=== PATIENT | male | born 1970 | race Caucasian/White ===

== ENCOUNTER 2017-06-04 15:10 | Emergency (ER) | payer OTHER ==
[2017-06-04 15:25] VITALS: BP 136/86
[2017-06-04] MEDS ORDERED: Ketorolac 60 MG/2 ML SDV IM ONE (15:35)
[2017-06-04] MEDS ORDERED: Ondansetron 4 MG Tab.DIS PO ONE (15:35)
--- NOTE | 2017-06-04 15:35 | EDM.PDOC ---
ED [facility] GENERAL MEDICAL PROBLEM - General Chief Complaint: Headache Stated Complaint: MIGRAINE Time Seen by Provider: 06/04/17 15:25 Source of Information: Reports: Patient History Limitations: Reports: No Limitations - History of Present Illness INITIAL COMMENTS - FREE TEXT/NARRATIVE: 47-year-old male presents for evaluation and treatment of a migraine headache. Patient reports that he developed a migraine headache yesterday that lasted about a day and a half. He reports that his symptoms resolved. He reports this current migraine started about 2 hours ago. Reports is located on the left side of his head behind his eye and in the left parietal temporal region. He reports that he usually has migraines are on the right side. Other than being on different side this is a pretty typical severe migraine for him. He reports associated symptoms of nausea, photophobia and phonophobia. Denies any fevers, cough or vomiting. Patient reports he gets frequent migraines. He has been on multiple medications and tried different things for his migraines. He has seen neurology in the past. He has also had multiple imaging studies including CT and MRIs done. No etiology for his migraines have been found. He reports that smells seem to be a trigger for him. He states that he has not appreciating anything noxious lately that could've caused this migraine. He is here requesting Toradol. Reports that Toradol treats his migraines very well and he would like some Toradol today. Onset: Today, Sudden Location: Reports: Head (left ) Headache Pain Score (Numeric/FACES): 10 - Related Data Allergies Allergy/AdvReac Type Severity Reaction Status Date / Time No Known Allergies Allergy Verified 06/04/17 15:25 Home Meds: Home Meds . [No Known Home Meds] 06/04/17 [History] Past Medical History Musculoskeletal History: Reports: Osteoarthritis Neurological History: Reports: Headaches, Chronic, Migraines - Past Surgical History Other Musculoskeletal Surgeries/Procedures:: herniated disks lower back Social & Family History - Family History Family Medical History: Noncontributory - Tobacco Use Smoking Status *Q: Never Smoker Years of Tobacco use: 10 Used Tobacco, but Quit: No Second Hand Smoke Exposure: No - Caffeine Use Caffeine Use: Reports: Coffee - Alcohol Use Days Per Week of Alcohol Use: 0 - Recreational Drug Use Recreational Drug Use: No - Living Situation & Occupation Living situation: Reports: , with Spouse Occupation: Employed ED [employer] GENERAL - Review of Systems Review Of Systems: See Below Constitutional: Denies: Fever HEENT: Denies: Ear Pain, Sinus Problem, Throat Pain Respiratory: Denies: Cough GI/Abdominal: Reports: Nausea. Denies: Vomiting Neurological: Reports: Headache (left parietal temporal region) - Physical Exam Exam: See Below Exam Limited By: No Limitations General Appearance: Alert, WD/WN, No Apparent Distress Eye Exam: Bilateral Eye: Normal Inspection, PERRL Ears: Normal External Exam, Normal Canal, Hearing Grossly Normal, Normal TMs Nose: Normal Inspection Throat/Mouth: Normal Inspection, Normal Lips, Normal Voice, No Airway Compromise Head Exam: Atraumatic, Normocephalic Neck: Normal Inspection, Non-Tender, Full Range of Motion Respiratory/Chest: No Respiratory Distress, Lungs Clear, Normal Breath Sounds Cardiovascular: Normal Peripheral Pulses, Regular Rate, Rhythm, No Murmur Neuro Exam (Abbreviated): Alert, Oriented, Normal Cognition Psychiatric: Normal Affect, Normal Mood Skin Exam: Warm, Dry, Normal Color Course - Vital Signs Last Recorded V/S: Last Vital Signs Temp 36.3 C 06/04/17 15:23 Pulse 63 06/04/17 15:23 Resp 18 06/04/17 15:23 BP 136/86 06/04/17 15:23 Pulse Ox 98 06/04/17 15:23 - Orders/Labs/Meds Meds: Medications Discontinued Medications Generic Name Dose Route Start Last Admin Trade Name Alexandru PRN Reason Stop Dose Admin Ketorolac Tromethamine 60 mg 06/04/17 15:35 06/04/17 15:49 Toradol IM 06/04/17 15:36 60 mg ONETIME ONE Administration Ondansetron HCl 4 mg 06/04/17 15:35 06/04/17 15:49 Zofran Odt PO 06/04/17 15:36 4 mg ONETIME ONE Administration - Re-Assessments/Exams Free Text/Narrative Re-Assessment/Exam: 06/04/17 16:12 Patient feels greatly improved at this time. He would like to go home. Migraine is now a /10. We will discharge him home. Discharge instructions as documented. Departure - Departure Time of Disposition: 16:12 Disposition: Home, Self-Care 01 Condition: Good Clinical Impression: Migraine - Discharge Information Instructions: Migraine Headache, [id number] Referrals: Shira Steiner DO [Primary Care Provider] - Forms: ED Department Discharge Additional Instructions: Continue with your current plan of care for migraine and headache relief. Make sure you're drinking plenty of fluids today. Please return to the ER if your symptoms change or worsen.
== END 2017-06-04 16:28 | disposition home or self-care (01) ==
LOC: JD.ED 15:10
DX: G43.909 Migraine, unspecified, not intractable, without status migrainosus (principal)
CPT/HCPCS: 96372; 99284; A9270; J1885; 99282

== ENCOUNTER → 2022-09-16 | Day surgery (SDC) | payer BC, OTHER ==
[~2022-09-16] MED LIST: Albuterol 0.083% 2.5 MG/3 ML Neb Soln NEB PRN; Ketorolac 30 MG/ML SDV ONE; Lactated Ringers 0 ML ONE; Lactated Ringers 1,000 ML IV SCH; Lidocaine 1%/Sod Bicarbonate in NS 8.4% 1 ML Syringe IDERM PRN; Midazolam 1 MG/ML 2 ML SDV ONE; Ondansetron 4 MG/2 ML SDV ONE; Propofol 200 MG/20 ML SDV ONE; Rocuronium 50 MG/5 ML Vial ONE; Sodium Chloride 0.9% 10 ML Syringe FLUSH PRN; Sodium Chloride 0.9% 10 ML Syringe FLUSH SCH; Succinylcholine 200 MG/10 ML MDV ONE; ceFAZolin 2 GM Vial ONE; fentaNYL 250 MCG/5 ML SDV ONE
[2022-09-16 08:57] LABS: HEMOGLOBIN A1C 10.2 %
[2022-09-16 09:03] VITALS: BP 147/95; PULSE 56
== END ==
LOC: JD.SDS 07:37
PROVIDERS: ATTEND Surgery
DX: R73.9 Hyperglycemia, unspecified (principal); Z53.09 Procedure and treatment not carried out because of other contraindication
CPT/HCPCS: 36415; 82947; 83036; 93005; 96360; J7120; J0330; J0690; J1885; J2250; J2405; J2704; J3010; J3490

== ENCOUNTER 2024-06-11 16:45 | Emergency (ER) | payer OTHER ==
[2024-06-11] MEDS: Ondansetron 4 MG/2 ML SDV IVPUSH ONE (17:34)
[2024-06-11] MEDS: Ondansetron 4 MG/2 ML SDV ONE (17:34)
[2024-06-11 17:50] LABS: BASOPHILS ABSOLUTE AUTO 0.1 K/mm3 (0.0-0.2); BASOPHILS PERCENT AUTO 0.9 % (0.0-1.0); EOSINOPHILS ABSOLUTE AUTO 0.1 K/mm3 (0.0-0.4); EOSINOPHILS PERCENT AUTO 1.2 % (0.0-6.0); HEMOGLOBIN 18.6 gm/dl (14.0-18.0); IMMATURE GRAN ABSOLUTE AUTO 0.01 K/mm3 (0.00-0.05); IMMATURE GRAN PERCENT AUTO 0.1 % (0.0-0.4); LYMPHOCYTES ABSOLUTE AUTO 3.3 K/mm3 (1.0-4.8); MEAN CORPUSCULAR HEMOGLOBIN 27.4 pg (28.0-32.0); MEAN CORPUSCULAR HGB CONC 33.8 g/dl (32.0-36.0); MEAN CORPUSCULAR VOLUME 80.9 fl (83.0-99.0); MEAN PLATELET VOLUME 10.5 fl (9.4-12.4); NEUTROPHILS ABSOLUTE AUTO 3.2 K/mm3 (1.8-7.7); NEUTROPHILS PERCENT AUTO 41.8 % (41.0-71.0); PLATELET COUNT,PLT 258 K/mm3 (150-400); WHITE BLOOD CELL COUNT,WBC 7.63 K/mm3 (3.9-11.3)
[2024-06-11 17:56] LABS: INR 1.03; PROTHROMBIN TIME 10.9 SECONDS (9.7-12.0)
[2024-06-11 18:00] LABS: ANION GAP 19.7 (5-15); BILIRUBIN TOTAL 1.1 mg/dL (0.2-1.0); BUN/CREATININE RATIO 13.3 (14-18); CALCIUM 9.2 mg/dL (8.5-10.1); CREATININE 1.2 mg/dL (0.7-1.3); EST CRCL DRUG DOSING (CG) 86.06 mL/min; POTASSIUM,K 3.7 mEq/L (3.5-5.1); PROTEIN TOTAL,TP 7.9 g/dl (6.4-8.2)
[2024-06-11] MEDS: Sodium Chloride 0.9% 1,000 ML IV ONE (19:09)
[2024-06-11] MEDS: Iopamidol 755 Mg/ML 100 ML Bottle IVPUSH ONE (19:34)
[2024-06-11] MEDS: Sodium Chloride 0.9% 100 ML IV SCH (19:34)
[2024-06-11] MEDS: Meclizine 25 MG Tab PO ONE (21:13)
[2024-06-11 21:22] VITALS: BP 176/84; PULSE 82
== END 2024-06-11 21:21 | disposition home or self-care (01) ==
LOC: JD.ED 16:45
DX: R42 Dizziness and giddiness (principal); I10 Essential (primary) hypertension; E11.9 Type 2 diabetes mellitus without complications; Z90.49 Acquired absence of other specified parts of digestive tract; Z88.8 Allergy status to other drugs, medicaments and biological substances; Z79.899 Other long term (current) drug therapy
CPT/HCPCS: 36415; 70450; 70496; 70498; 80053; 82947; 84484; 85025; 85610; 93005; 96361; 96374; 99284; A9270; J2405; J7030; Q9967